=== PATIENT | female | born 1960 | race Caucasian/White ===

== ENCOUNTER 2022-12-13 08:28 | Day surgery (SDC) | payer OTHER ==
[~2022-12-13] VITALS: Ht 157.5 cm; Wt 45.8 kg
[2022-12-13] MEDS ORDERED: fentaNYL citrate 0.05 MG/ML VIAL ONE (09:02)
[2022-12-13] MEDS ORDERED: diphenhydrAMINE 50 MG/ML VIAL ONE (09:02)
[2022-12-13] MEDS ORDERED: MIDAZOLAM 5 MG/5 ML VIAL ONE (09:03)
[2022-12-13] MEDS ORDERED: MIDAZOLAM 2 MG/2 ML VIAL IVP ONE (10:55)
[2022-12-13] MEDS ORDERED: fentaNYL citrate 0.05 MG/ML VIAL IVP ONE (10:55)
== END 2022-12-13 10:50 | disposition home or self-care (01) ==
LOC: MOR 08:28 → MMU 08:28 → MOR 10:50
PROVIDERS: ATTEND Internal Medicine Gastroenterology
DX: Z12.11 Encounter for screening for malignant neoplasm of colon (principal); D12.4 Benign neoplasm of descending colon; K52.9 Noninfective gastroenteritis and colitis, unspecified; I10 Essential (primary) hypertension; Z88.0 Allergy status to penicillin; Z79.899 Other long term (current) drug therapy; Z80.0 Family history of malignant neoplasm of digestive organs; Z90.722 Acquired absence of ovaries, bilateral
CPT/HCPCS: 45380; 45385; J2250; J3010; J1200